=== PATIENT | male | born 1980 | race Two or more races ===

== ENCOUNTER 2021-07-14 13:19 | Emergency (ER) | payer OTHER ==
[~2021-07-14] VITALS: Ht 172.7 cm; Wt 113.4 kg
[2021-07-14] MEDS ORDERED: DUI500 PO (16:51)
== END 2021-07-14 16:58 | disposition home or self-care (01) ==
LOC: ER 13:19
DX: S01.01XA Laceration without foreign body of scalp, initial encounter (principal); W20.8XXA Other cause of strike by thrown, projected or falling object, initial encounter; Y93.9 Activity, unspecified; Y92.9 Unspecified place or not applicable; Y99.9 Unspecified external cause status